=== PATIENT | female | born 1990 | race Caucasian/White ===

== ENCOUNTER 2017-05-18 12:18 | Emergency (ER) | payer SELFPAY ==
--- NOTE | 2017-05-18 12:21 | ER Report ---
History and Physical Time Seen By MD: 12:20 HPI/ROS CHIEF COMPLAINT: Ear pain HISTORY OF PRESENT ILLNESS:Right sided ear pain for the past week with associated vertigo; also reports "blood from ear" Also reports frontal headache. Patient reports swimming in [place] about 1 month ago patient has pain with any pressure over the ear pulling of the pinna of the ear. She denies fevers or chills. Allergies: Coded Allergies: codeine (Verified Allergy, Intermediate, HIVES, 05/18/17) Home Meds Active Scripts Hydrocodone Bit/Acetaminophen (HYDROCODON-ACETAMINOPHEN 5-325) 1 Each Tablet, 1 EACH PO Q4-6H Y for PAIN, #15 TAB 0 Refills TAKE ONE TABLET BY MOUTH EVERY 4-6 HOURS NEEDED FOR PAIN Prov:STEVEN MORENO MD 05/18/17 Reported Medications Amphet Asp/Amphet/D-Amphet (ADDERALL XR 30 MG CAPSULE) 30 Mg Cap.er.24h, 30 MG PO BID 05/18/17 Escitalopram Oxalate (LEXAPRO) 20 Mg Tablet, 10 MG PO QDAY, TAB 05/18/17 Past Medical/Surgical History PMHx: endometriosis; UTI's, TMJ Constitutional Vital Sign - Last 24 Hours 05/18/17 05/18/17 05/18/17 05/18/17 12:22 12:23 12:30 12:33 Temp 97.8 Pulse 80 94 Resp 16 B/P (MAP) 121/80 (94) 121/80 115/72 (86) Pulse Ox 98 98 O2 Delivery Room Air 05/18/17 12:48 Pulse Ox 99 Physical Exam General Appearance: The patient is alert, has no immediate need for airway protection and no current signs of toxicity. Eyes: Pupils equal and round no injection. EARS: Sedimentation of the left ear is unremarkable. Right ear shows normal tympanic membrane. The right canal is erythematous injected there is some dried blood. There is pain with traction of the pinna. Medical Decision Making ED Course/Re-evaluation ED Course 05/18/2017 12:48:52 pm plan this time will be to place a wick with Cortisporin otic suspension. Decision to Disposition Date: May 18, 2017 Decision to Disposition Time: 12:49 Depart Departure Latest Vital Signs Vital Signs Date Time Temp Pulse Resp B/P (MAP) Pulse Ox O2 Delivery O2 Flow Rate FiO2 05/18/17 12:48 99 05/18/17 12:33 94 05/18/17 12:30 115/72 (86) 05/18/17 12:23 97.8 16 Room Air Impression: Primary Impression: Otitis externa Condition: Improved Disposition: HOME OR SELF-CARE New Scripts Hydrocodone Bit/Acetaminophen (HYDROCODON-ACETAMINOPHEN 5-325) 1 Each Tablet 1 EACH PO Q4-6H Y for PAIN, #15 TAB 0 Refills TAKE ONE TABLET BY MOUTH EVERY 4-6 HOURS NEEDED FOR PAIN Prov: STEVEN MORENO MD 05/18/17 Departure Forms: ER Transition Record, Medications Reconciliation, Patient Portal Information Patient Instructions: Otitis Externa (DC) Additional Instructions: Cortisporin otic drops: 4 drops to the right ear every 4 hours while awake for the next 7 days and discontinue and remove the ear wick. Problem Qualifiers Primary Impression: Otitis externa Otitis externa type: unspecified type Chronicity: acute Laterality: right Qualified Codes: H60.501 - Unspecified acute noninfective otitis externa, right ear STEVEN MORENO MD May 18, 2017 12:21
[2017-05-18] MEDS ORDERED: ESCI20TA38 PO (12:25)
[2017-05-18] MEDS ORDERED: ADDE30XRPT PO (12:26)
[2017-05-18 12:30] VITALS: BP 115/72
[2017-05-18] MEDS ORDERED: NEOMYC/POLYMY/HYDROC OTIC SUSP RIGHT EAR ONE (12:40)
[2017-05-18] MEDS ORDERED: OXYC-865 PO (12:50)
[2017-05-18] MEDS ORDERED: PER PO (12:51)
[2017-05-18] MEDS ORDERED: LOR5/325 PO (12:52)
== END 2017-05-18 13:00 | disposition home or self-care (01) ==
LOC: ER 12:22
DX: H60.501 Unspecified acute noninfective otitis externa, right ear (principal)
CPT/HCPCS: 99282